=== PATIENT | female | born 1960 | race American Indian/Alaskan Native ===

== ENCOUNTER 2020-10-09 16:06 | Emergency (ER) | payer SELFPAY ==
[2020-10-09] MEDS ORDERED: DIPHtheria,PERTUSSIS(ACELL),TETANUS VACCINE/PF 0.5 ML VIAL IM ONE (17:33)
--- NOTE | 2020-10-09 17:33 | Event Note ---
ED Screening Note ED Screening Note: Patient states that a drill accidentally fell and hit her in the nose at 330 today She states that she just began having epistaxis approximately 2 minutes ago Pressure was held and bleeding improved She is unsure of last tetanus This initial assessment/diagnostic orders/clinical plan/treatment(s) is/are subject to change based on patients health status, clinical progression and re- assessment by fellow clinical providers in the ED. Further treatment and workup at subsequent clinical providers discretion. Patient/guardian urged not to elope from the ED as their condition may be serious if not clinically assessed and managed. Initial orders include: CT facial bones, Tdap
[2020-10-09 17:42] VITALS: BP 162/91
--- NOTE | 2020-10-09 18:01 | Cat Scan Report ---
CT MAXILLOFACIAL WITHOUT CONTRAST INDICATION: drill fell onto nose, epistaxis. TECHNIQUE: CT facial bones without contrast All CT scans at this location are performed using CT dose reduction for ALARA by means of automated exposure control. COMPARISON: None available. FINDINGS: FACIAL BONES: There is a depressed comminuted fracture of the bilateral nasal bones as well as a comm inuted fracture of the nasal septum with leftward nasal septal deviation. There is no additional maxi llofacial fracture. PARANASAL SINUSES: No significant abnormality. ORBITS: No significant abnormality. VISUALIZED INTRACRANIAL STRUCTURES: No significant abnormality. ADDITIONAL FINDINGS: There is a large amount of blood and fluid layering in the pharynx. IMPRESSION: 1. Comminuted and depressed bilateral nasal fractures as well as comminuted nasal septal fracture w ith leftward deviation of the nasal septum. Signer Name: Bryan Agustin MD Signed: 10/09/2020 5:57 PM Workstation Name: [id number]
== END 2020-10-09 19:15 | disposition left against medical advice (07) ==
LOC: ED 16:06
DX: Z00.8 Encounter for other general examination (principal); Z53.21 Procedure and treatment not carried out due to patient leaving prior to being seen by health care provider
CPT/HCPCS: 70486